=== PATIENT | female | born 1945 | race African-American/Black ===

== ENCOUNTER 2022-01-02 10:53 | Emergency (ER) | payer MEDICARE, BC ==
[~2022-01-02] VITALS: Ht 162.6 cm; Wt 64.5 kg
[2022-01-02] MEDS ORDERED: LEVO100T5 PO (11:00)
[2022-01-02] MEDS ORDERED: AMLO1TAB25 PO (11:00)
[2022-01-02 12:58] LABS: BASO % 0.2 % (0.0-1.0); EOS # 0.1 10^3/uL (0.0-0.5); EOS % 2.1 % (0.0-3.0); HEMATOCRIT 44.2 % (36.0-47.0); HEMOGLOBIN 14.3 g/dl (12.0-15.5); LYMPH # 1.9 10^3/uL (1.5-5.0); LYMPH % 43.3 % (24.0-44.0); MEAN CORPUSCULAR HEMOGLOBIN 30.2 pg (27.0-33.0); MEAN CORPUSCULAR HGB CONC 32.4 g/dl (32.0-36.5); MEAN CORPUSCULAR VOLUME 93.2 fl (80.0-96.0); MONO # 0.4 10^3/uL (0.0-0.8); MONO % 8.1 % (2.0-8.0); NEUTROPHILS % 46.1 % (36.0-66.0); PLATELET COUNT, AUTOMATED 227 10^3/uL (150-450); RED BLOOD COUNT 4.74 10^6/uL (4.00-5.40); WHITE BLOOD COUNT 4.3 10^3/uL (4.0-10.0)
[2022-01-02 13:50] LABS: BILIRUBIN,DIRECT 0.2 MG/DL (0.0-0.2); BILIRUBIN,TOTAL 0.4 MG/DL (0.2-1.0)
[2022-01-02] MEDS ORDERED: KETOROLAC 30 MG/ML 1ML VIAL IV ONE (13:50)
[2022-01-02] MEDS ORDERED: ISOVUE-370 76% 100ML VIAL As Ordered ONE (14:56)
[2022-01-02 15:48] VITALS: BP 126/71
== END 2022-01-02 15:57 | disposition home or self-care (01) ==
LOC: M ED 10:53
DX: R07.89 Other chest pain (principal); I10 Essential (primary) hypertension; K21.9 Gastro-esophageal reflux disease without esophagitis; C50.919 Malignant neoplasm of unspecified site of unspecified female breast; Z87.442 Personal history of urinary calculi; Z91.040 Latex allergy status; Z88.1 Allergy status to other antibiotic agents; Z79.890 Hormone replacement therapy; Z79.899 Other long term (current) drug therapy
CPT/HCPCS: 71046; 71275; 80047; 80076; 83690; 84484; 85025; 93005; 96374; 99284; J1885; Q9967